=== PATIENT | male | born 1990 | race Caucasian/White ===

== ENCOUNTER 2018-07-19 14:30 | Observation (INO) | payer MEDICAID, SELFPAY ==
[2018-07-19 14:46] VITALS: BMI 20.1; BMI 20.2
[2018-07-19 15:06] VITALS: BP 143/89; PULSE 90; RESP 16; TEMP 37.1
[2018-07-19 15:49] LABS: Absolute Lymphocyte Count 2.17 X10^3/ul (0.83-4.51); Absolute Neutrophil Count 3.9 X10^3/uL (2.0-7.7); Basophil# 0.04 X10^3/uL; Basophil% 0.6 % (0-1); Eosinophils% 1.4 % (0-5); Hematocrit 40.3 % (40-54); Hemoglobin 13.6 g/dl (13.0-16.5); Lymphocyte # 2.17 X10^3/ul (4.0); Lymphocyte % 30.7 % (19-41); Mean Corp Hgb Conc 33.7 g/gl (32-36); Mean Corpuscular Hgb 29.1 pg (27.0-32.0); Mean Corpuscular Volume 86.1 fL (80-94); Mean Platelet Vol. 9.4 fl (6.2-12.0); Monocyte# 0.83 X10^3/uL; Monocyte% 11.8 % (0-10); Neutrophil # 3.91 X10^3/uL (2.7-7.7); Neutrophil % 55.4 % (47-70); Platelet Count 292 K/mm3 (150-450); RBC Distribution Width CV 13.4 % (11.6-14.6); Red Blood Count 4.68 M/mm3 (4.6-6.2); White Blood Count 7.1 K/mm3 (4.4-11.0)
--- NOTE | 2018-07-19 15:49 | PCM.HP.STD ---
History of Present Illness Date of Admission: 07/19/18 Chief Complaint: opiate withdrawal The patient is a 27 year old M with a history of bipolar disorder anxiety and depression as well as opiate abuse. He was admitted to the [facility] program for opiate withdrawal. He has been using heroin for some years now and states he had a 20-month episode of sobriety around 2016 but started using again after his daughter . He is not been able to be stable since then. He last used heroin this morning around 10amd and uses 1-2 gram of heroin IV daily. He also smokes cigarettes but denies any other drug use. Denies any fever chills, cough or chest pain, shortness of breath, abdominal pain, any diarrhea vomiting. He was diagnosed with hepatitis B in the past and is treatment na?ve. He has been admitted to be managed for opiate withdrawal. [] Past Medical History Allergies No Known Allergies Allergy (Verified 07/19/18 14:49) Surgical History: no surgical history Psychiatric History: Anxiety, Bipolar, Depression Lives: With Family Smoking Status: Current every day smoker Tobacco Use: Cigarettes Alcohol: None Drugs: Heroin - *Family History Maternal History Items: No pertinent history Paternal History Items: - - addiction disorder Review of Systems Constitutional: Denies: Chills, Fever, Malaise, Weight Change, Fatigue Eyes: Denies: Blurred vision HEENT: Denies: Head Aches, Sinus Congestion, Sinus Drainage Cardiovascular: Denies: Chest Pain, Palpitations Respiratory: Denies: Cough, Shortness of Breath, Shortness of breath at rest, Shortness of breath upon exertion, Sputum production Gastrointestinal: Reports: Abdominal Pain. Denies: Constipation, Dyspepsia, Nausea, Vomiting, - - periodic abdominal cramping Genitourinary: Denies: Dysuria Musculoskeletal: Reports: Shoulder Pain - from injury some months ago. Denies: Joint Pain, Joint Tenderness Skin: Denies: Rash, Wounds Neurological: Denies: Numbness, Tingling, Focal weakness Psychiatric: Denies: Anxiety, Depression, Homicidal Ideations, Suicidal Ideations Hematologic/ Lymphatic: Denies: Easy Bruising, Easy Bleeding VTE Information - Inpt Only VTE Present on Admission: No VTE Mechan Device Prophylaxis: SCD's - Physical Exam General: Alert, Oriented x3, Cooperative, No apparent distress HEENT: Atraumatic, PERRLA, EOMI, Normocephalic Oral: Moist Mucosa Neck: Supple, No JVD, Negative Carotid Bruits Lungs: Clear to auscultation, Normal air movement, No rhonchi, No wheeze, No rales Cardiovascular: Regular rate, Regular Rhythm, Normal S1, Normal S2, No murmurs Abdomen: Bowel Sounds Present, Soft, Non Tender, Non-Distended, No Hepato-splenomegaly Extremities: No clubbing, No cyanosis, No edema, Capillary Refill Less than 3 Seconds Skin: - - track vaz over upper extremities Musculoskeletal: No Tenderness to Palpation of Joints or Extremities Lymphatic: No Cervical, Supraclavicular, or Inguinal Adenopathy Neurological: Cranial nerves II-XII grossly intact, Neuro grossly intact, Motor Exam 5/5 strength throughout Psych/Mental Status: Normal Affect, Appropriate, Alert and oriented to time, place, person, mood and affect Vital Signs Temp Pulse Resp BP 98.7 F 90 16 143/89 H 07/19/18 15:06 07/19/18 15:06 07/19/18 15:06 07/19/18 15:06 Weight: 140 lb 8 oz Body Mass Index (BMI) 20.1 Laboratory Tests Past 24 Hrs 07/19/18 07/19/18 15:36 15:36 WBC Pending RBC Pending Hgb Pending Hct Pending MCV Pending MCH Pending MCHC Pending RDW Pending RDW Differential Pending Plt Count Pending Neut % (Auto) Pending Absolute Neuts (auto) Pending Total Counted Pending Sodium Pending Potassium Pending Chloride Pending Carbon Dioxide Pending Anion Gap Pending BUN Pending Creatinine Pending Est GFR (MDRD) Af Amer Pending Est GFR (MDRD) Non-Af Pending BUN/Creatinine Ratio Pending Glucose Pending Calcium Pending Magnesium Pending Total Bilirubin Pending AST Pending ALT Pending Alkaline Phosphatase Pending Total Protein Pending Albumin Pending Assessment/Plan 27 y/o admitted for opiate withdrawal 1. Opiate withdrawal Admit to MedSurg. Check CBC, CMP and magnesium as well as urine tox. Start opiate withdrawal protocol with buprenorphine per [facility] V[facility]ion protocol. 2. Hepatitis C: Treatment na?ve. Counseled on illness liquids, he will not be able to get treatment. 3. Right shoulder pain, likely musculoskeletal: says he fell some weeks ago and has right shoulder pain, mainly with rotation. Will do xray of left shoulder. 4. Anxiety, depression and bipolar disorder: States he not been on treatment for it. To follow-up with psychiatrist upon discharge. DVT Prophylaxis: Encourage ambulation Disposition: He is hoping to go to an in-house rehab facility in [place] where he lives upon discharge. Code Visit Inpatient E&M: [id number] Init Hosp L3
[2018-07-19 15:50] LABS: POSITIVE COUNT NO; POSITIVE DIFFERENTIAL NO; POSITIVE MORPHOLOGY NO
[2018-07-19] MEDS: Buprenorphine HCl 2 MG TAB.SUBL SL ×2 (15:53→23:09)
[2018-07-19] MEDS: Methocarbamol 750 MG Tablet PO ×2 (15:53→21:46)
[2018-07-19] MEDS: Pramipexole Di-HCl 0.25 MG Tablet PO (15:53)
[2018-07-19] MEDS: hydrOXYzine PAM 25 MG Capsule 50 MG PO ×2 (15:54→21:46)
[2018-07-19] MEDS: Dicyclomine 10 MG Capsule 20 MG PO ×2 (15:54→21:46)
[2018-07-19] MEDS: cloNIDine HCl 0.1 MG Tablet PO ×2 (15:54→21:46)
--- NOTE | 2018-07-19 15:55 | HP.PCM_ITS ---
History of Present Illness Date of Admission: 07/19/18 Chief Complaint: opiate withdrawal The patient is a 27 year old M with a history of bipolar disorder anxiety and depression as well as opiate abuse. He was admitted to the [facility] program for opiate withdrawal. He has been using heroin for some years now and states he had a 20-month episode of sobriety around 2016 but started using again after his daughter . He is not been able to be stable since then. He last used heroin this morning around 10amd and uses 1-2 gram of heroin IV daily. He also smokes cigarettes but denies any other drug use. Denies any fever chills, cough or chest pain, shortness of breath, abdominal pain, any diarrhea vomiting. He was diagnosed with hepatitis B in the past and is treatment na?ve. He has been admitted to be managed for opiate withdrawal. [] Past Medical History Allergies No Known Allergies Allergy (Verified 07/19/18 14:49) Surgical History: no surgical history Psychiatric History: Anxiety, Bipolar, Depression Lives: With Family Smoking Status: Current every day smoker Tobacco Use: Cigarettes Alcohol: None Drugs: Heroin - *Family History Maternal History Items: No pertinent history Paternal History Items: - - addiction disorder Review of Systems Constitutional: Denies: Chills, Fever, Malaise, Weight Change, Fatigue Eyes: Denies: Blurred vision HEENT: Denies: Head Aches, Sinus Congestion, Sinus Drainage Cardiovascular: Denies: Chest Pain, Palpitations Respiratory: Denies: Cough, Shortness of Breath, Shortness of breath at rest, Shortness of breath upon exertion, Sputum production Gastrointestinal: Reports: Abdominal Pain. Denies: Constipation, Dyspepsia, Nausea, Vomiting, - - periodic abdominal cramping Genitourinary: Denies: Dysuria Musculoskeletal: Reports: Shoulder Pain - from injury some months ago. Denies: Joint Pain, Joint Tenderness Skin: Denies: Rash, Wounds Neurological: Denies: Numbness, Tingling, Focal weakness Psychiatric: Denies: Anxiety, Depression, Homicidal Ideations, Suicidal Ideations Hematologic/ Lymphatic: Denies: Easy Bruising, Easy Bleeding VTE Information - Inpt Only VTE Present on Admission: No VTE Mechan Device Prophylaxis: SCD's - Physical Exam General: Alert, Oriented x3, Cooperative, No apparent distress HEENT: Atraumatic, PERRLA, EOMI, Normocephalic Oral: Moist Mucosa Neck: Supple, No JVD, Negative Carotid Bruits Lungs: Clear to auscultation, Normal air movement, No rhonchi, No wheeze, No rales Cardiovascular: Regular rate, Regular Rhythm, Normal S1, Normal S2, No murmurs Abdomen: Bowel Sounds Present, Soft, Non Tender, Non-Distended, No Hepato- splenomegaly Extremities: No clubbing, No cyanosis, No edema, Capillary Refill Less than 3 Seconds Skin: - - track vaz over upper extremities Musculoskeletal: No Tenderness to Palpation of Joints or Extremities Lymphatic: No Cervical, Supraclavicular, or Inguinal Adenopathy Neurological: Cranial nerves II-XII grossly intact, Neuro grossly intact, Motor Exam 5/5 strength throughout Psych/Mental Status: Normal Affect, Appropriate, Alert and oriented to time, place, person, mood and affect Vital Signs Temp Pulse Resp BP 98.7 F 90 16 143/89 H 07/19/18 15:06 07/19/18 15:06 07/19/18 15:06 07/19/18 15:06 Weight: 140 lb 8 oz Body Mass Index (BMI) 20.1 Laboratory Tests Past 24 Hrs 07/19/18 07/19/18 15:36 15:36 WBC Pending RBC Pending Hgb Pending Hct Pending MCV Pending MCH Pending MCHC Pending RDW Pending RDW Differential Pending Plt Count Pending Neut % (Auto) Pending Absolute Neuts (auto) Pending Total Counted Pending Sodium Pending Potassium Pending Chloride Pending Carbon Dioxide Pending Anion Gap Pending BUN Pending Creatinine Pending Est GFR (MDRD) Af Amer Pending Est GFR (MDRD) Non-Af Pending BUN/Creatinine Ratio Pending Glucose Pending Calcium Pending Magnesium Pending Total Bilirubin Pending AST Pending ALT Pending Alkaline Phosphatase Pending Total Protein Pending Albumin Pending Assessment/Plan 27 y/o admitted for opiate withdrawal 1. Opiate withdrawal * Admit to MedSurg. * Check CBC, CMP and magnesium as well as urine tox. * Start opiate withdrawal protocol with buprenorphine per [facility] VIsion protocol. * 2. Hepatitis C: Treatment na?ve. Counseled on illness liquids, he will not be able to get treatment. 3. Right shoulder pain, likely musculoskeletal: says he fell some weeks ago and has right shoulder pain, mainly with rotation. Will do xray of left shoulder. 4. Anxiety, depression and bipolar disorder: States he not been on treatment for it. To follow-up with psychiatrist upon discharge. DVT Prophylaxis: Encourage ambulation Disposition: He is hoping to go to an in-house rehab facility in [place] where he lives upon discharge. Code Visit Inpatient E&M: [id number] Init Hosp L3
[2018-07-19 16:03] LABS: ALB/GLOB Ratio 0.8 RATIO (0.9-2.4); AST(SGOT) 50 U/L (15-37); Alanine Aminotransfer ALT/SGPT 185 U/L (16-61); Albumin, Serum 3.9 g/dL (3.2-5.0); Alkaline Phosphatase 155 U/L (45-117); Anion Gap 7 (5-15); BUN 8 mg/dL (7-18); BUN/Creat Ratio 8.9 RATIO (10-20); Calcium,Total 9.7 mg/dL (8.5-10.1); Chloride 101 mmol/L (98-107); EST Glomerular Filtration Rate 108 mL/min (>60); Est Glom Filt Rate - Afr Amer 131 mL/min (>60); Estimated Creatinine Clearance 112.12 ml/min; Glucose 100 mg/dL (74-106); Magnesium 1.9 mg/dL (1.6-2.6); Potassium 3.6 mmol/L (3.5-5.1); Protein, Total 8.9 g/dL (6.4-8.2); Sodium Level 136 mmol/L (136-145)
[2018-07-19 21:26] VITALS: BP 131/76; PULSE 86; RESP 16; TEMP 37.1
[2018-07-20] VITALS (7 sets, daily range): BP systolic 116–133; BP diastolic 68–71; PULSE 82–90; RESP 16–18; TEMP 36.7–37.1; O2SAT 96
[2018-07-20 00:13] LABS: Vista UDS pH Range 6
[2018-07-20 00:14] LABS: Amphetamine Urine VISTA POSITIVE (<1000 ng/mL); Barbiturate Urine VISTA NEGATIVE (< 200 ng/mL); Benzodiazepine Urine VISTA NEGATIVE (< 200 ng/mL); Cocaine Urine VISTA NEGATIVE (< 300 ng/mL); Ecstacy Urine VISTA NEGATIVE (< 500 ng/mL); Methadone Urine VISTA NEGATIVE (< 300 ng/mL)
[2018-07-20 00:15] LABS: PCP Urine VISTA NEGATIVE (< 25 ng/mL); THC Urine VISTA NEGATIVE (< 50 ng/mL)
[2018-07-20] MEDS: Methocarbamol 750 MG Tablet PO ×3 (04:19→21:21)
[2018-07-20] MEDS: cloNIDine HCl 0.1 MG Tablet PO ×2 (04:19→21:21)
[2018-07-20] MEDS: hydrOXYzine PAM 25 MG Capsule 50 MG PO ×2 (04:19→10:37)
[2018-07-20] MEDS: Pramipexole Di-HCl 0.25 MG Tablet PO ×2 (04:19→21:21)
[2018-07-20 05:59] LABS: Absolute Lymphocyte Count 2.65 X10^3/ul (0.83-4.51); Absolute Neutrophil Count 3.3 X10^3/uL (2.0-7.7); Basophil# 0.05 X10^3/uL; Basophil% 0.6 % (0-1); Eosinophil# 0.32 X10^3/uL; Eosinophils% 4.2 % (0-5); Hematocrit 44.3 % (40-54); Hemoglobin 14.7 g/dl (13.0-16.5); Lymphocyte # 2.65 X10^3/ul (4.0); Lymphocyte % 34.4 % (19-41); Mean Corp Hgb Conc 33.2 g/gl (32-36); Mean Corpuscular Hgb 28.5 pg (27.0-32.0); Mean Platelet Vol. 9.7 fl (6.2-12.0); Monocyte# 1.34 X10^3/uL; Monocyte% 17.4 % (0-10); Neutrophil # 3.34 X10^3/uL (2.7-7.7); Neutrophil % 43.3 % (47-70); Platelet Count 344 K/mm3 (150-450); RBC Distribution Width CV 13.8 % (11.6-14.6); RBC Distribution Width SD 43.2 fl (35.1-43.9); Red Blood Count 5.15 M/mm3 (4.6-6.2); White Blood Count 7.7 K/mm3 (4.4-11.0)
[2018-07-20 06:00] LABS: Anion Gap 6 (5-15); BUN 13 mg/dL (7-18); BUN/Creat Ratio 13.1 RATIO (10-20); Calcium,Total 10.2 mg/dL (8.5-10.1); Chloride 103 mmol/L (98-107); Creatinine, Serum 0.99 mg/dL (0.70-1.30); EST Glomerular Filtration Rate 97 mL/min (>60); Est Glom Filt Rate - Afr Amer 117 mL/min (>60); Estimated Creatinine Clearance 101.93 ml/min; Glucose 88 mg/dL (74-106); Potassium 4.4 mmol/L (3.5-5.1); Sodium Level 140 mmol/L (136-145)
[2018-07-20 06:22] LABS: POSITIVE COUNT NO; POSITIVE DIFFERENTIAL NO; POSITIVE MORPHOLOGY NO
[2018-07-20] MEDS: Buprenorphine HCl 2 MG TAB.SUBL SL ×3 (06:48→23:47)
--- NOTE | 2018-07-20 18:08 | PCM.PROGNOTE ---
Subjective: Patient was seen and examined today, he is not complaining of excessive nervousness at this time or tremor. - Physical Exam General: Alert, Oriented x3, Cooperative, No apparent distress, Well developed HEENT: Atraumatic, PERRLA, EOMI, Normocephalic Oral: Moist Mucosa Neck: Supple, Trachea Midline, Thyroid Normal Size and Texture Lungs: Clear to auscultation, Normal air movement, No rhonchi, No wheeze, No rales Cardiovascular: Regular rate, Regular Rhythm, Normal S1, Normal S2, No murmurs, No Ectopic Activity Abdomen: Bowel Sounds Present, Soft, Non Tender, Non-Distended, No hernias noted Extremities: No clubbing, No cyanosis, No edema, Capillary Refill Less than 3 Seconds Skin: No rashes, No breakdown Musculoskeletal: No Tenderness to Palpation of Joints or Extremities Neurological: Cranial nerves II-XII grossly intact, Neuro grossly intact, Sensory exam intact to light touch and pain, Coordination normal Psych/Mental Status: Normal Affect, Appropriate, Alert and oriented to time, place, person, mood and affect Vital Signs Temp Pulse Resp BP 98.1 F 87 18 133/69 H 07/20/18 13:10 07/20/18 13:10 07/20/18 18:00 07/20/18 13:10 Oxygen Delivery Method Room Air Weight: 63.73 kg Body Mass Index (BMI) 20.1 Intake and Output for Last 24 Hours 07/18/18 07/19/18 07/20/18 23:59 23:59 23:59 Intake Total 1200 / 1200 1999 Balance 1200 / 1200 1999 Laboratory Tests Past 24 Hrs 07/19/18 07/20/18 07/20/18 23:20 05:25 05:25 WBC 7.7 RBC 5.15 Hgb 14.7 Hct 44.3 MCV 86.0 MCH 28.5 MCHC 33.2 RDW 13.8 RDW Differential 43.2 Plt Count 344 MPV 9.7 Immature Gran % (Auto) 0.100 Neut % (Auto) 43.3 L Lymph % (Auto) 34.4 [place] % (Auto) 17.4 H Eos % (Auto) 4.2 Baso % (Auto) 0.6 Absolute Neuts (auto) 3.3 Absolute Lymphs (auto) 2.65 Total Counted Not Reportable Sodium 140 Potassium 4.4 Chloride 103 Carbon Dioxide 31.0 Anion Gap 6 BUN 13 Creatinine 0.99 Estim Creat Clear Calc 101.93 Est GFR (MDRD) Af Amer 117 Est GFR (MDRD) Non-Af 97 BUN/Creatinine Ratio 13.1 Glucose 88 Calcium 10.2 H Urine Opiates Screen POSITIVE H Urine Methadone Screen NEGATIVE Ur Barbiturates Screen NEGATIVE Ur Phencyclidine Scrn NEGATIVE Ur Amphetamines Screen POSITIVE H U Methamphetamin-MDMA NEGATIVE U Benzodiazepines Scrn NEGATIVE Urine Cocaine Screen NEGATIVE U Cannabinoids Screen NEGATIVE Ur Drug Screen Comment Medical Necessity - Tobacco Use Smoking Status: Current every day smoker Tobacco Use: Cigarettes Assessment/Plan #1 acute narcotic withdrawal-uncomplicated, continue present medication #2 heroin addiction #3 Positive hepatitis C-patient will need follow-up as outpatient #4 bipolar disorder Code Visit Inpatient E&M: [id number] Subs Hosp L2
--- NOTE | 2018-07-20 18:11 | PN_ITS ---
Subjective: Patient was seen and examined today, he is not complaining of excessive nervousness at this time or tremor. - Physical Exam General: Alert, Oriented x3, Cooperative, No apparent distress, Well developed HEENT: Atraumatic, PERRLA, EOMI, Normocephalic Oral: Moist Mucosa Neck: Supple, Trachea Midline, Thyroid Normal Size and Texture Lungs: Clear to auscultation, Normal air movement, No rhonchi, No wheeze, No rales Cardiovascular: Regular rate, Regular Rhythm, Normal S1, Normal S2, No murmurs, No Ectopic Activity Abdomen: Bowel Sounds Present, Soft, Non Tender, Non-Distended, No hernias noted Extremities: No clubbing, No cyanosis, No edema, Capillary Refill Less than 3 Seconds Skin: No rashes, No breakdown Musculoskeletal: No Tenderness to Palpation of Joints or Extremities Neurological: Cranial nerves II-XII grossly intact, Neuro grossly intact, Sens ory exam intact to light touch and pain, Coordination normal Psych/Mental Status: Normal Affect, Appropriate, Alert and oriented to time, place, person, mood and affect Vital Signs Temp Pulse Resp BP 98.1 F 87 18 133/69 H 07/20/18 13:10 07/20/18 13:10 07/20/18 18:00 07/20/18 13:10 Oxygen Delivery Method Room Air Weight: 63.73 kg Body Mass Index (BMI) 20.1 Intake and Output for Last 24 Hours 07/18/18 07/19/18 07/20/18 23:59 23:59 23:59 Intake Total 1200 / 1200 1999 Balance 1200 / 1200 1999 Laboratory Tests Past 24 Hrs 07/19/18 07/20/18 07/20/18 23:20 05:25 05:25 WBC 7.7 RBC 5.15 Hgb 14.7 Hct 44.3 MCV 86.0 MCH 28.5 MCHC 33.2 RDW 13.8 RDW Differential 43.2 Plt Count 344 MPV 9.7 Immature Gran % (Auto) 0.100 Neut % (Auto) 43.3 L Lymph % (Auto) 34.4 [place] % (Auto) 17.4 H Eos % (Auto) 4.2 Baso % (Auto) 0.6 Absolute Neuts (auto) 3.3 Absolute Lymphs (auto) 2.65 Total Counted Not Reportable Sodium 140 Potassium 4.4 Chloride 103 Carbon Dioxide 31.0 Anion Gap 6 BUN 13 Creatinine 0.99 Estim Creat Clear Calc 101.93 Est GFR (MDRD) Af Amer 117 Est GFR (MDRD) Non-Af 97 BUN/Creatinine Ratio 13.1 Glucose 88 Calcium 10.2 H Urine Opiates Screen POSITIVE H Urine Methadone Screen NEGATIVE Ur Barbiturates Screen NEGATIVE Ur Phencyclidine Scrn NEGATIVE Ur Amphetamines Screen POSITIVE H U Methamphetamin-MDMA NEGATIVE U Benzodiazepines Scrn NEGATIVE Urine Cocaine Screen NEGATIVE U Cannabinoids Screen NEGATIVE Ur Drug Screen Comment Medical Necessity - Tobacco Use Smoking Status: Current every day smoker Tobacco Use: Cigarettes Assessment/Plan #1 acute narcotic withdrawal-uncomplicated, continue present medication #2 heroin addiction #3 Positive hepatitis C-patient will need follow-up as outpatient #4 bipolar disorder Code Visit Inpatient E&M: [id number] Subs Hosp L2
[2018-07-21] MEDS: hydrOXYzine PAM 25 MG Capsule 50 MG PO ×2 (01:20→08:34)
[2018-07-21 02:14] VITALS: BP 116/73; PULSE 84; RESP 18; TEMP 36.6
[2018-07-21 02:22] VITALS: O2SAT 97
[2018-07-21] MEDS: Buprenorphine HCl 2 MG TAB.SUBL SL (08:31)
[2018-07-21] MEDS: cloNIDine HCl 0.1 MG Tablet PO (08:33)
[2018-07-21] MEDS: Pramipexole Di-HCl 0.25 MG Tablet PO (08:34)
[2018-07-21] MEDS: Methocarbamol 750 MG Tablet PO (08:34)
[2018-07-21 08:39] VITALS: BP 108/63; PULSE 84; RESP 18; TEMP 36.8
--- NOTE | 2018-07-21 08:46 | NURSING ---
Up walking p[place]on and getting coffee. Subutex and some other prn's given.
--- NOTE | 2018-07-21 09:20 | PCM.PROGNOTE ---
Subjective: Patient seen and examined. No acute events overnight. Currently feels well. Denies nausea, vomiting, diarrhea, abdominal cramping. Mild anxiety. - Physical Exam General: Alert, Oriented x3, Cooperative HEENT: Atraumatic, PERRLA, EOMI, Normocephalic Neck: Supple, No JVD, Negative Carotid Bruits Lungs: Clear to auscultation, Normal air movement Cardiovascular: Regular rate, Regular Rhythm, Normal S1, Normal S2, No murmurs Abdomen: Bowel Sounds Present, Soft, Non Tender, Non-Distended Extremities: No clubbing, No cyanosis, No edema, Capillary Refill Less than 3 Seconds Skin: No rashes, No breakdown Musculoskeletal: No Tenderness to Palpation of Joints or Extremities Neurological: Cranial nerves II-XII grossly intact, Neuro grossly intact Psych/Mental Status: Normal Affect, Appropriate Vital Signs Temp Pulse Resp BP Pulse Ox 98.2 F 84 18 108/63 97 07/21/18 08:39 07/21/18 08:39 07/21/18 08:39 07/21/18 08:39 07/21/18 02:22 Oxygen Delivery Method Room Air Weight: 140 lb 8 oz Body Mass Index (BMI) 20.1 Intake and Output for Last 24 Hours 07/19/18 07/20/18 07/21/18 23:59 23:59 23:59 Intake Total 1200 / 1200 2300 / 2300 360 / 360 Balance 1200 / 1200 2300 / 2300 360 / 360 Medical Necessity - Tobacco Use Smoking Status: Current every day smoker Tobacco Use: Cigarettes Assessment/Plan 1. Acute opioid withdrawal- tox screen positive opiates, amphetamines. Continue medical stabilization per protocol. Patient plans on outpatient counseling and Suboxone program. Plan for DC tomorrow following completion of medical stabilization protocol. 2. Hepatitis C positive- outpatient follow up. 3. Anxiety/Depression/Bipolar- Not on regimen. Encourage outpatient follow up. DVT prophylaxis-not indicated due to low risk. This patient was seen by LES Christianson under the supervision of Dr. Man.
--- NOTE | 2018-07-21 09:30 | PCA ---
pt in shower
--- NOTE | 2018-07-21 11:17 | PCM.DC.SUM ---
Discharge Date and Diagnosis Date of Admission: 07/19/18 Date of Discharge: 07/21/18 - Primary Discharge Diagnosis 1. Acute opioid withdrawal 2. Hepatitis C positive 3. Anxiety/depression/bipolar Hospital Course and Treatment Operations: None Procedures: None Summary of Care Provided: The patient is a 27 year old M who presented through [facility] program 07/19/2018 for opiate withdrawal. 1. Acute opioid withdrawal- tox screen positive opiates, amphetamines. Patient received medical stabilization per protocol. Patient plans on outpatient counseling and Suboxone program. Patient signed out AGAINST MEDICAL ADVICE prior to completion of medical stabilization protocol. 2. Hepatitis C positive- outpatient follow up. 3. Anxiety/Depression/Bipolar- Not on regimen. Encourage outpatient follow up. General: Alert, Oriented x3, Cooperative HEENT: Atraumatic, PERRLA, EOMI, Normocephalic Neck: Supple, No JVD, Negative Carotid Bruits Lungs: Clear to auscultation, Normal air movement Cardiovascular: Regular rate, Regular Rhythm, Normal S1, Normal S2, No murmurs Abdomen: Bowel Sounds Present, Soft, Non Tender, Non-Distended Extremities: No clubbing, No cyanosis, No edema, Capillary Refill Less than 3 Seconds Skin: No rashes, No breakdown Musculoskeletal: No Tenderness to Palpation of Joints or Extremities Neurological: Cranial nerves II-XII grossly intact, Neuro grossly intact Psych/Mental Status: Normal Affect, Appropriate Patient seen and examined prior to discharge. Physical assessment as noted above. As noted above, patient signed out AGAINST MEDICAL ADVICE. This patient was seen by LES Christianson under the supervision of Dr. Man. - Physical Exam Vital Signs Temp Pulse Resp BP Pulse Ox 98.2 F 84 18 108/63 97 07/21/18 08:39 07/21/18 08:39 07/21/18 08:39 07/21/18 08:39 07/21/18 02:22 Oxygen Delivery Method Room Air Weight: 140 lb 8 oz Body Mass Index (BMI) 20.1 Intake and Output for Last 24 Hours 07/19/18 07/20/18 07/21/18 23:59 23:59 23:59 Intake Total 1200 / 1200 2300 / 2300 360 / 360 Balance 1200 / 1200 2300 / 2300 360 / 360 Disposition: Against Medical Advice Minutes spent on discharge:: 35 Patient Condition:: Stable Medical Necessity - Tobacco Use Smoking Status: Current every day smoker Tobacco Use: Cigarettes Meaningful Use Info Meaningful Use Diagnoses (Choose all that apply): None applicable
--- NOTE | 2018-07-21 11:26 | NURSING ---
Pt came up to nursing station and requested to leave because his grandmother is in the hospital in [place]. This nurse encouraged pt to stay in program but refused. Has a ride all ready set up and they are coming to pick me up. Pt was very cooperative all morning and had all prn's.
== END 2018-07-21 11:11 | disposition left against medical advice (07) | DRG 770 ==
LOC: MS3 11-21 09:42 → MS2 11-21 09:42
PROVIDERS: Admitting Provider Student in an Organized Health Care Education/Training Program; Referring Provider Student in an Organized Health Care Education/Training Program; Visit Provider Internal Medicine
DX: F11.23 Opioid dependence with withdrawal (principal); F17.210 Nicotine dependence, cigarettes, uncomplicated; B19.20 Unspecified viral hepatitis C without hepatic coma; M25.511 Pain in right shoulder; F31.9 Bipolar disorder, unspecified; F41.9 Anxiety disorder, unspecified
CPT/HCPCS: 36415; 80048; 80053; 80307; 83735; 85025; 97802; 99218; 99406; G0378; G0379